=== PATIENT | female | born 1960 | race Caucasian/White ===

== ENCOUNTER 2020-09-16 11:42 | Emergency (ER) | payer OTHER, SELFPAY ==
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
--- NOTE | ~2020-09-16 | CT_ITS ---
EXAMINATION: CT cervical spine wo con DATE: 09/16/2020 13:12 INDICATION: Neck pain TECHNIQUE: Computed tomography (CT) of the cervical spine was performed without intravenous contrast. The dose-length product (DLP) was 458.98 mGy-cm. Automated exposure control and iterative reconstruc tion technique were employed. COMPARISON: None FINDINGS: There is no fracture, dislocation, or subluxation. The odontoid is intact. There is mild lo ss of intervertebral disc space height throughout the cervical spine. The prevertebral soft tissues a re normal. Small degenerative osteophytes project from the anterior endplates of multiple vertebral b odies. IMPRESSION: 1. Mild to moderate cervical spondylosis without acute findings. Reviewed, dictated and finalized at location B.
[2020-09-16 11:30] VITALS: BP 163/101; PULSE 76; RESP 18; TEMP 36.6; O2SAT 97
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
[2020-09-16 12:58] LABS: Estimated CRCL calculation 154 ml/min; Estimated Glomerular Filt Rate > 60
[2020-09-16 13:03] LABS: Estimated CRCL calculation 65 ml/min; Estimated Glomerular Filt Rate > 60
[2020-09-16 13:38] LABS: Basophils Percent Auto 0.4 % (0.2-1.2); Eosinophils Absolute Auto 0.1 K/mm3 (0-0.3); Eosinophils Percent Auto 1.2 % (0-4.4); Hematocrit 38.8 % (37.0-47.0); Hemoglobin 12.3 g/dL (12.0-15.0); Immature Granulocyte Absolute 0.02 K/mm3 (0.00-0.031); Immature Granulocyte Percent A 0.2 % (0-0.5); Lymphocytes Absolute Auto 1.59 K/mm3 (0.9-3.2); Lymphocytes Percent Auto 17.7 % (18.3-44.2); Mean Corpuscular HGB Conc 31.7 g/dl (32-36); Mean Corpuscular Hemoglobin 26.9 pg (26-34); Mean Corpuscular Volume 84.9 fl (80-100); Mean Platelet Volume 9.9 fl (7.4-10.4); Monocytes Absolute Auto 0.6 K/mm3 (0.1-0.6); Monocytes Percent Auto 6.4 % (2.6-8.5); Neutrophils Absolute Auto 6.7 K/mm3 (1.3-6.7); Neutrophils Percent Auto 74.1 % (45.5-73.1); Platelet Count Result 326 k/mm3 (150-375); Red Blood Count 4.57 M/mm3 (4.2-5.4)
[2020-09-16] MEDS: LACTATED RINGERS 1,000 ML 999 ML IV CONT (13:46)
[2020-09-16 13:48] LABS: Alanine Aminotransferase 21 U/L (4-35); Alkaline Phosphatase 71 U/L (38-126); Anion Gap 7 mmol/L (8-16); Aspartate Amino Transferase 28 U/L (14-36); Bilirubin,Total 0.4 mg/dL (0.2-1.3); Blood Urea Nitrogen 15 mg/dL (7-17); Calcium 8.7 mg/dL (8.4-10.2); Carbon Dioxide 29 mmol/L (22-30); Chloride 102 mmol/L (98-107); Estimated CRCL calculation 73 ml/min; Estimated Glomerular Filt Rate > 60; Glucose 88 mg/dL (65-105); Potassium 3.4 mmol/L (3.4-5.0); Sodium 138 mmol/L (137-145)
== END 2020-09-16 15:52 | disposition home or self-care (01) ==
PROVIDERS: Emergency Provider Emergency Medicine; PCP Family Medicine
DX: S20.211A Contusion of right front wall of thorax, initial encounter (principal); S80.11XA Contusion of right lower leg, initial encounter; V53.5XXA Driver of pick-up truck or van injured in collision with car, pick-up truck or van in traffic accident, initial encounter
CPT/HCPCS: 71260; 72125; 73590; 74177; 80053; 85025; 96360; 99284; J7120; Q9967

== ENCOUNTER 2022-09-07 15:19 | Outpatient (CLI) | payer OTHER, SELFPAY ==
--- NOTE | ~2022-09-07 | CT_ITS ---
Non-contrast CT scan of the Abdomen and Pelvis Clinical indication: Hematuria Technique: 2.5 mm axial scans were obtained through the abdomen and pelvis without intravenous or or al contrast. Dose reduction technique was used on this scan by utilizing automated exposure control a nd iterative reconstruction technique. The dose-length product (DLP) was 283.82 mGy-cm. COMPARISON: 09/16/2020 Findings: Images through the lung bases reveal no abnormalities. There is a 1.0 x 0.7 cm stone at the left renal pelvis, with Hounsfield units in the range of 900. No hydronephrosis. No right renal or right ureteral stones seen. No right hydronephrosis. The liver, spleen, pancreas, gallbladder, and adrenals appear normal. There is no aortic aneurysm. There is no evidence of bowel obstruction. Images through the pelvis were performed. There is no evidence of ascites or lymphadenopathy. Urinary bladder unremarkable. No adnexal mass seen. No ascites. Impression: 8 mm nonobstructing left renal stone, as detailed above. Reviewed, dictated and finalized at location M. Impression: 8 mm nonobstructing left renal stone, as detailed above.
== END 2022-09-07 15:20 | disposition home or self-care (01) ==
PROVIDERS: PCP Family Medicine; Visit Provider Physician Assistant
DX: R31.9 Hematuria, unspecified (principal); N20.0 Calculus of kidney
CPT/HCPCS: 74176

== ENCOUNTER 2022-10-10 13:14 | Outpatient (CLI) | payer OTHER, SELFPAY ==
[2022-10-10 14:29] LABS: Appearance Urine Clear (Clear); Bacteria Urine None Seen /hpf; Bilirubin Urine Negative (Negative); Blood Urine 2+ (Negative); Color Urine Yellow (Yellow); Glucose Urine UA Negative (Negative); Ketones Urine Negative (Negative); Leukocyte Esterase Ur Negative LEU/UL (Negative); Nitrate Urine Negative (Negative); Non Pathogenic Casts 0-2; Protein Urine Negative (Negative); Specific Grav Ur 1.012 (1.001-1.035); Squamous Epithelial Cell Urine None seen /hpf (Few); Urobilinogen Urine 0.2 mg/dL (<2.0); WBC Urine 0-5 /hpf
[2022-10-10 14:34] LABS: INR 0.9; Prothrombin Time 12.5 Seconds (11.1-14.7)
[2022-10-10 14:35] LABS: Partial Thromboplastin Time 25.2 SECONDS (22.3-36.8)
[2022-10-10 14:46] LABS: Add Urine Microscopic? YES
== END 2022-10-10 13:15 | disposition home or self-care (01) ==
LOC: ANHSURGERY 13:16
PROVIDERS: PCP Family Medicine; Visit Provider Urology
DX: N20.1 Calculus of ureter (principal); Z01.818 Encounter for other preprocedural examination
CPT/HCPCS: 36415; 81001; 85610; 85730

== ENCOUNTER 2022-10-12 01:09 | Day surgery (SDC) | payer OTHER, SELFPAY ==
[2022-10-09 14:03] VITALS: BMI 32.1
--- NOTE | 2022-10-09 14:18 | PC.NURSE ---
Report to the Outpatient Waiting Room, entrance under the green pavilion located off [facility], at time 7:30 on date 10/12/22. Planned Procedure Time: 9:30. Time changes happen often and if your time is changed the preop area will call you the afternoon before. - You and your visitor will be asked to self-screen and do not enter if you have any COVID symptoms. - A mask is optional within the hospital at this time. Patients may have clear liquids (water, carbonated beverages, clear teas, apple juice) until 3 hours prior to surgery (6:30) with a maximum of 20 ounces. - No food from midnight until time of surgery Take the following medications with a SIP of water the morning of surgery: BUPROPION, DULOXETINE DO NOT STOP ANY OF YOUR OTHER PRESCRIPTION MEDICATIONS PRIOR TO SURGERY ?EXCEPT THE FOLLOWING Medications to discontinue per physician: VITAMINS, NAPROXEN Date to take last dose: NO MORE UNTIL AFTER SURGERY Please no make-up, nail nigerien, hairspray, perfume, deodorant, or body powder the day of surgery. No jewelry (including any body piercings) or valuables the day of surgery, leave them at home. Please take a shower or bath the night before, or the morning of, surgery with an antibacterial soap. Wear comfortable, loose fitting clothing. - Jewelry must be removed prior to entering the operating room. Rings and piercings that are not removed may be cut off. - The hospital will not accept responsibility for valuables. - Please leave all valuables, including medications, at home the day of surgery. If you are going home after surgery, a licensed feeder driver must drive you home. - NO public transportation without another adult if you receive anesthesia. - We recommend that an adult stay with you for 24 hours following discharge. - We also recommend that you do not drive, make important decision, drink alcoholic beverages, or take any drugs that were not prescribed by your health care provider for at least 24 hours after your discharge time. Follow any additional instructions given to you from your surgeon. If you or anyone in your household have experienced Covid symptoms in the past week, please notify your surgeon or the nurse liaison at the phone number below for possible testing. Telephone instructions given to PT - TOSHIA ROJAS and asked if any additional questions and then verbalized understanding. Patient advised to call surgeon office or pre surgery nurse liaison [phone] if any additional questions.
--- NOTE | 2022-10-11 09:17 | WPDANESEPPF ---
Anes - Initial Pre Proc Eval Procedure: Operation Date: 10/12/22 09:30 Proposed Procedures p Left Renal Extracorporeal Shock Wave Lithotripsy - Alf Oseguera MD Date/Time: 10/11/22 09:17 Surgeon: Alf Oseguera MD Pre Op Diagnosis: left ureteral stone Patient Data Age: 62 Gender: F Height: 1.55 m Weight: 77.15 kg Allergies Allergy/AdvReac Type Severity Reaction Status Date / Time azithromycin Allergy Mild unknown Verified 10/09/22 14:06 cefuroxime Allergy Unknown Skin Verified 10/09/22 14:06 Reaction ciprofloxacin Allergy Unknown Skin Verified 10/09/22 14:06 Reaction doxycycline Allergy Unknown Nausea Verified 10/09/22 14:06 escitalopram Allergy Unknown swelling Verified 10/09/22 14:06 Penicillins Allergy Unknown Unknown Verified 10/09/22 14:06 venom-wasp Allergy Unknown local Verified 10/09/22 14:06 swelling/angioedema Home Medications Medication Instructions Recorded Confirmed Type duloxetine 60 mg capsule,delayed See Rx Instructions .Route 02/06/22 10/09/22 Rx release .COMPLEX #90 caps bupropion HCl 150 mg 24 hr tablet, See Rx Instructions .Route 02/16/22 10/09/22 Rx extended release .COMPLEX #90 tabs omeprazole 40 mg capsule,delayed 40 mg PO DAILY #90 caps 06/01/22 10/09/22 Rx release naproxen 500 mg tablet 500 mg PO BID #60 tabs 07/16/22 10/09/22 Rx cholecalciferol (vitamin D3) 50 50 mcg PO DAILY 08/31/22 10/09/22 History mcg (2,000 unit) capsule mecobalamin (vitamin B12) 1,000 1,000 mcg PO DAILY 08/31/22 10/09/22 History mcg chewable tablet eszopiclone 2 mg tablet 2 mg PO ONCE #1 tablet 09/19/22 10/09/22 Rx Patient hx anesthesia problems: none Family hx anesthesia problems: none Results Review: All pre-operative results and documents have been reviewed as part of the pre-operative evaluation. [facility] Past Medical History Medical History (Updated 10/11/22 @ 09:18 by Wali Cheng DO) Abnormal glandular Papanicolaou smear of cervix Abnormal mammogram of right breast 2018 normal Anxiety Cervical polyp Chronic pain syndrome Depression Hypothyroidism, unspecified Palpitations Poison alonso PONV (postoperative nausea and vomiting) Stenosis of larynx Unspecified ovarian cyst, left side Vitamin D deficiency, unspecified Family History Family History Other Cerebrovascular accident Social History Social History (Updated 09/19/22 @ 11:59 by Davy Villarreal APRN) Social History: Caffeine-soda x3 daily Smoking status: Never smoker Additional smoking assessment comments: Social smoker in for less than 1 year Alcohol intake: never Substance use: never Substance use type: does not use Lack of Transportation: No Lack of Food: Never True Current Housing: I Have Housing Concerned About Future Housing: No Difficulty Paying Gas/Electric Bills: No Difficulty Paying for Meds: No Currently Unemployed: No Education: High School Diploma/GED Difficulty w/ Childcare or Family Care: No Living arrangements: with family Spiritual care concerns: No Anes - Eval Final PreProcedure Day of Procedure 10/11/22 09:17 Patient weight: obese Heart: regular rate and rhythm Lungs: clear to auscultation Airway: Mallampati scale class II Neurological: alert and oriented Last oral intake: >/= 8 hours ASA classification: III Emergent: no Anesthetic plan: proceed Anesthesia type and monitoring: general LMA and standard monitoring Results Review: All pre-operative results and documents have been reviewed as part of the pre-operative evaluation. Informed Consent: The patient's anesthetic plan and its attendant risks and benefits were discussed with the patient/family/POA. Questions were solicited and answers provided to the satisfaction of the patient/family/POA.
[2022-10-12] VITALS (8 sets, daily range): BP systolic 147–162; BP diastolic 75–104; PULSE 53–75; RESP 12–16; TEMP 36.3–36.5; O2SAT 95–99
--- NOTE | ~2022-10-12 | XR_ITS ---
Supine and upright views of the abdomen Clinical history: Lithotripsy Findings: Bowel gas pattern is nonspecific. No evidence for obstruction or free air. Questionable 7 m m stone at the left renal pelvis or proximal left ureteral region. Osseous structures are intact. Impression: Questionable 7 mm stone in the left renal pelvis or proximal left ureteral region. Reviewed, dictated and finalized at [facility]. Impression: Questionable 7 mm stone in the left renal pelvis or proximal left ureteral nisa on.
--- NOTE | 2022-10-12 06:48 | WPDHPUPDATE1 ---
History and Physical Update Update Date/Time: 10/12/22 06:48 History and Physical has been reviewed, including an updated exam of the patient. There are NO changes in the patient's condition. Risks, benefits, and alternatives have been discussed and questions answered. Patient agrees to proceed with procedure.
[2022-10-12] MEDS: LACTATED RINGERS 1,000 ML 30 ML IV CONT (08:39)
[2022-10-12] MEDS: SCOPOLAMINE 1.5 MG PATCH TRANSDERM (08:55)
[2022-10-12] MEDS: GENTAMICIN 80MG/SOD CHL 50 ML 80 MG/50 ML BAG 100 MG IVPB (09:22)
[2022-10-12] MEDS: KETOROLAC 30 MG/ML VIAL (*BKC) IV PUSH (09:56)
--- NOTE | 2022-10-12 10:03 | P.OP_ITS ---
Procedure Note - Detailed Date of Procedure 10/12/22 Pre-op Diagnosis Left renal stone Post-op Diagnosis Same Procedure Performed Cystoscopy, left retrograde pyelography, left ESWL Surgeon Alf Oseguera MD Anesthesia General Description of Procedure The patient was brought to the operative suite where she was placed in the frog- legged position on the Dornier lithotripter table. Flexible cystoscopy was undertaken with a 16F flexible cystoscopy. Her urethra and bladder neck were endoscopically normal. The bladder mucosa was normal and there was a single, orthotopic ureteral orifice bilaterally. A 0.035 glidewire was advanced into the left renal pelvis under fluoroscopy. and angiographic catheters placed over the wire to perform a retrograde pyelogram and identify her 1 cm renal pelvic stone.. The focal point of the lithotriptor was placed at a 10mm left renal calculus. A total of 2500 shocks were delivered at a power setting of 4. There appeared to be good fragmentation of the stone. The patient tolerated the procedure well and was taken to the recovery room in good condition. Estimated Blood Loss 0 Urine Output 0 Drains No Packing No Pathology None sent Complications No immediate complications Condition Stable
--- NOTE | 2022-10-12 10:51 | SUR.PHASEI ---
1051: Simple mask removed.
[2022-10-12] MEDS: oxyCODONE HCL (*CRX) 5 MG TAB IR PO (11:24)
== END 2022-10-12 11:55 | disposition home or self-care (01) ==
PROVIDERS: PCP Family Medicine; Visit Provider Urology
PROC: (CPT 50590; principal; 2022-10-12 09:30)
DX: N20.0 Calculus of kidney (principal); F32.A Depression, unspecified; F41.9 Anxiety disorder, unspecified; E55.9 Vitamin D deficiency, unspecified; E66.9 Obesity, unspecified; Z68.33 Body mass index [BMI] 33.0-33.9, adult
CPT/HCPCS: 50590; 36415; 74018; 81001; 85610; 85730; A9270; C1758; J1100; J1580; J1885; J2250; J2405; J2704; J3010; J7120; Q9966

== ENCOUNTER 2022-10-22 13:23 | Outpatient (CLI) | payer OTHER, SELFPAY ==
--- NOTE | ~2022-10-22 | XR_ITS ---
EXAM: XR abdomen/kub 1V DATE: 10/22/2022 13:44 HISTORY: N20.0 - Calculus of kidney . COMPARISON: 10/04/2022; CT abdomen pelvis 09/07/2022. FINDINGS: Clear lung bases. Normal bowel gas pattern. No organomegaly. 11 mm calcification projectin g over the left renal shadow. Ovoid calcification projecting over the mid pelvis, calcified diverticu lum in the prior CT. Regional bones and soft tissues normal for age. IMPRESSION: Left nephrolithiasis. Reviewed, dictated and finalized at location K. IMPRESSION: Left nephrolithiasis.
== END 2022-10-22 13:24 | disposition home or self-care (01) ==
PROVIDERS: PCP Family Medicine; Visit Provider Urology
DX: N20.0 Calculus of kidney (principal)
CPT/HCPCS: 74018

== ENCOUNTER 2022-11-29 09:45 | Outpatient (CLI) | payer OTHER, SELFPAY ==
--- NOTE | 2022-12-07 18:29 | WPDHOMESLEEP ---
Sleep Study - Home Unattended Date of Study: 11/29/22 Ordering Provider: Davy Villarreal APRN Interpreting Provider: Quin Whitaker MD Home Sleep Study Type: David PAT Height: 1.6 m Weight: 80.739 kg Body Mass Index: 31.5 Neck Circumference (inches): 15 Sharon: 18 Reason for Sleep Study Hypersomnolence * 2001, PSG, EEG showed alpha wave intrusion no sleep apnea Sleep History Kary Mcwilliams is a 62-year-old woman with excessive daytime sleepiness. She was referred by her OBGYN for sleep evaluation. Her medical comorbidities include hypertension, depression, acid reflux and seasonal allergies. She has had fatigue and excessive sleepiness for the past 1-2 years in difficulties with sleep onset. She often awakens feeling un refreshed and tired in the morning. She does not have morning headaches. She is tired throughout the day, occasionally takes an afternoon nap lasting an hour. Taking naps is new for her. Naps are not refreshing. She was initially planning to have an in-lab study, however insurance authorized a home sleep test first. she always has loud snoring, always has heartburn at night and always has excessive daytime sleepiness. She rarely has memory or concentration problems. She occasionally has morning headaches. She frequently has trouble sleeping when she has a cold. She occasionally wakes up gasping for breath during the night. She frequently has breathing problems at night. She occasionally sweats excessively at night. She occasionally notices her heart pounding or beating irregularly during the night. She occasionally falls asleep during the day. She rarely falls asleep involuntarily, rarely falls asleep while driving. She never experiences loss of muscle tone with strong emotion. She rarely feels paralyzed on waking or falling asleep. She occasionally experiences vivid dreams upon waking or falling asleep. She never feel afraid of going to sleep. She occasional has nightmares. She frequently recalls her dreams. She occasionally has thoughts racing through her mind. She occasionally feels sad or depressed. She occasionally feels anxiety. She occasionally notices parts of her body jerk. She occasionally kicks during the night. She occasionally feels crawling or aching feelings in her legs. She occasionally feels leg pain at night. She rarely grinds his teeth, rarely has morning jaw pain. She occasionally feels bothered by pain during the day, rarely awakened by pain during the night. She occasionally wakes up feeling stiff in the morning, occasionally wakes feeling sore or achy in the morning. Occasionally, she awakens with pain in her neck, spine, or joints. She reports gaining weight in the last year. Normal bedtime is 11:00 p.m. and 12 midnight, taking 1/2 hour to fall asleep typically waking between 2 and 3 times at night to go to the bathroom. She wakes in the morning by 7:00 a.m.. She keeps a similar schedule on weekends, however she wakes later, 9:00 a.m. wake time. She wakes at night to go to the bathroom, Up to twice at night. It was more recent with a kidney stone.. She has sporadic restless leg symptoms in the evenings. She takes naps in the day. These are not refreshing. She is drowsy on waking. Habits:??Tobacco:nothing significant Caffeine: she drinks soda in the day. Alcohol: none Recreational substances: none [facility] Past Medical History Medical History (Updated 12/09/22 @ 15:07 by Quin Whitaker MD) Abnormal glandular Papanicolaou smear of cervix Abnormal mammogram of right breast 2018 normal Anxiety Cervical polyp Chronic pain syndrome Depression Hypertension Hypothyroidism, unspecified Palpitations Poison alonso PONV (postoperative nausea and vomiting) Stenosis of larynx Unspecified ovarian cyst, left side Vitamin D deficiency, unspecified Surgical History Surgical History (Updated 12/09/22 @ 15:08 by Quin Whitaker MD) History of tracheostomy as a child
[2022-12-09 14:39] VITALS: BMI 31.5
== END 2022-12-03 10:31 | disposition home or self-care (01) ==
LOC: ANHCSM 09:45
PROVIDERS: PCP Family Medicine; Visit Provider Nurse Practitioner Family
DX: G47.10 Hypersomnia, unspecified (principal)
CPT/HCPCS: 95800

== ENCOUNTER 2023-01-08 20:00 | Outpatient (CLI) | payer OTHER, SELFPAY ==
--- NOTE | 2023-01-28 12:04 | WPDSLEEPSTUD ---
Sleep Study Date of Study: 01/08/23 Ordering Provider: Davy Villarreal APRN Interpreting Physician: Dunia Thakkar DO Sleep Study Type: CPAP Titration Height: 1.6 m Weight: 80.739 kg Body Mass Index: 31.5 Neck Circumference (inches): 16 [place]: 11 Reason for Sleep Study The patient had a [employer] home sleep study on 11/29/2022 that showed an overall AHI of 13.1 with desaturation down to 83%. Due to laryngeal trauma, she needed to have a PAP Titration study. Sleep History Kary Mcwilliams is a 62-year-old woman with excessive daytime sleepiness.? She was referred by her OBGYN for sleep evaluation. ? Her medical comorbidities include hypertension, depression, acid reflux and seasonal allergies. She has had fatigue and excessive sleepiness for the past 1-2 years in difficulties with sleep onset.? She often awakens feeling un refreshed and tired in the morning.? She does not have morning headaches.? She is tired throughout the day, occasionally takes an afternoon nap lasting an hour.? Taking naps is new for her.? Naps are not refreshing.? She was initially planning to have an in-lab study, however insurance authorized a home sleep test first.? she always has loud snoring, always has heartburn at night and always has excessive daytime sleepiness.? She rarely has memory or concentration problems.? She occasionally has morning headaches.? She frequently has trouble sleeping when she has a cold.? She occasionally wakes up gasping for breath during the night. She frequently has breathing problems at night. She occasionally sweats excessively at night. She occasionally notices her heart pounding or beating irregularly during the night.? She occasionally falls asleep during the day.? She rarely falls asleep involuntarily,? rarely falls asleep while driving. She never experiences loss of muscle tone with strong emotion.? She rarely feels paralyzed on waking or falling asleep. She occasionally experiences vivid dreams upon waking or falling asleep. She? never feel afraid of going to sleep. She? occasional has nightmares. She frequently recalls her dreams. She occasionally has thoughts racing through her mind. She occasionally feels sad or depressed. She occasionally feels anxiety. She occasionally notices parts of her body jerk.? She occasionally kicks during the night. She occasionally feels crawling or aching feelings in her legs. She occasionally feels leg pain at night.? She rarely grinds his teeth,? rarely has morning jaw pain. She occasionally feels bothered by pain during the day,? rarely awakened by pain during the night. She occasionally wakes up feeling stiff in the morning,? occasionally wakes feeling sore or achy in the morning. ? Occasionally, she awakens with pain in her neck, spine, or joints.? ? She reports gaining weight in the last year. Normal bedtime is? 11:00 p.m. and 12 midnight,? taking 1/2 hour to fall asleep typically waking between 2 and 3 times at night to go to the bathroom.? She wakes in the morning by 7:00 a.m..? She keeps a similar schedule on weekends, however she wakes later, 9:00 a.m. wake time. ? She wakes at night to go to the bathroom, ? Up to twice at night.? It was more recent with a kidney stone..? She has sporadic restless leg symptoms in the evenings.? She takes naps in the day. These are not refreshing. She is drowsy on waking.? Habits:??Tobacco:nothing significant ? ? Caffeine: she drinks soda in the day. ? Alcohol: none ? ? Recreational substances: none [facility] Past Medical History Medical History Abnormal glandular Papanicolaou smear of cervix Abnormal mammogram of right breast 2018 normal Anxiety Cervical polyp Chronic pain syndrome Depression Hypertension Hypothyroidism, unspecified Palpitations Poison alonso PONV (postoperative nausea and vomiting) Stenosis of larynx Unspecified ovarian cyst, left side Vitamin D deficiency, unspecified Surgical History Surgi
[2023-01-28 12:14] VITALS: BMI 31.5
== END 2023-01-09 07:36 | disposition home or self-care (01) ==
LOC: ANHCSM 01-09 07:35
PROVIDERS: PCP Family Medicine; Visit Provider Nurse Practitioner Family
DX: G47.33 Obstructive sleep apnea (adult) (pediatric) (principal)
CPT/HCPCS: 95811

== ENCOUNTER 2023-04-15 16:05 | Emergency (ER) | payer OTHER, SELFPAY ==
--- NOTE | ~2023-04-15 | XR_ITS ---
EXAMINATION: XR chest 2V Exam Date/Time: 04/15/2023 17:25 REGISTERED RADIOGRAPHER HISTORY: shortness of breath Comparison: CT cap 09/16/2020. RESULT: Lines, tubes, and devices: None. Lungs and pleura: Low volumes with crowding in the lateral view. No focal consolidation, pleural eff usion, or pneumothorax. Granulomatous calcification. Cardiomediastinal silhouette: Stable. Other: No acute osseous or upper abdominal finding. IMPRESSION: No acute cardiopulmonary process. Reviewed, dictated and finalized at location K. STERED RADIOGRAPHER
[2023-04-15 16:10] VITALS: BP 158/102; PULSE 77; RESP 18; TEMP 36.8; O2SAT 100
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
--- NOTE | 2023-04-15 16:46 | ECG_ITS ---
Measurements Intervals [place] Rate: 75 P: 51 NE: 159 QRS: -22 QRSD: 106 T: 55 QT: 392 QTc: 438 Interpretive Statements SINUS RHYTHM BORDERLINE R WAVE PROGRESSION, ANTERIOR LEADS LEFT VENTRICULAR HYPERTROPHY AND ST-T CHANGE BORDERLINE ECG NO PREVIOUS ECG AVAILABLE FOR COMPARISON Electronically Signed On 04-16-2023 6:18:42 WRITER EDITOR by Pierre Wong D.O.
[2023-04-15 18:18] LABS: Basophils Percent Auto 0.7 % (0.2-1.2); Eosinophils Absolute Auto 0.2 K/mm3 (0-0.3); Eosinophils Percent Auto 2.9 % (0-4.4); Hematocrit 40.4 % (37.0-47.0); Hemoglobin 12.9 g/dL (12.0-15.0); Immature Granulocyte Absolute 0.02 K/mm3 (0.00-0.031); Immature Granulocyte Percent A 0.4 % (0-0.5); Lymphocytes Absolute Auto 1.03 K/mm3 (0.9-3.2); Mean Corpuscular HGB Conc 31.9 g/dl (32-36); Mean Corpuscular Hemoglobin 26.5 pg (26-34); Mean Platelet Volume 9.6 fl (7.4-10.4); Monocytes Absolute Auto 0.7 K/mm3 (0.1-0.6); Monocytes Percent Auto 13.6 % (2.6-8.5); Neutrophils Absolute Auto 3.4 K/mm3 (1.3-6.7); Neutrophils Percent Auto 63.4 % (45.5-73.1); Platelet Count Result 365 k/mm3 (150-375); Red Blood Count 4.87 M/mm3 (4.2-5.4); Red Cell Distribution Width 13.2 % (11.5-14.5); White Blood Count 5.4 K/mm3 (4.5-10.0)
[2023-04-15 18:38] LABS: Alanine Aminotransferase 21 U/L (6-35); Albumin Level 4.3 g/dL (3.5-5.1); Alkaline Phosphatase 79 U/L (38-126); Anion Gap 8 mmol/L (8-16); Aspartate Amino Transferase 27 U/L (14-36); Bilirubin,Total 0.4 mg/dL (0.2-1.3); Blood Urea Nitrogen 10 mg/dL (7-17); Calcium 9.3 mg/dL (8.4-10.2); Carbon Dioxide 33 mmol/L (22-30); Chloride 93 mmol/L (98-107); Estimated CRCL calculation 57 ml/min; Estimated Glomerular Filt Rate > 60; Glucose 92 mg/dL (65-110); Potassium 3.2 mmol/L (3.4-5.0); Sodium 134 mmol/L (137-145)
[2023-04-15 18:49] LABS: NT Pro B Type Natriuretic Pept 357 pg/mL (19.9-100); Troponin I < 0.012 ng/mL (0.000-0.034)
[2023-04-15 18:54] LABS: Influenza A QL RT-PCR Negative (Negative); Influenza B QL RT-PCR Negative (Negative); RSV RNA, RT-PCR Negative (Negative); SARS-CoV-2 RNA PCR Positive (Negative)
[2023-04-15 20:45] VITALS: BP 143/89; PULSE 75; RESP 18; O2SAT 99
[2023-04-15 23:52] VITALS: BP 156/92; PULSE 65; RESP 16; O2SAT 95
== END 2023-04-16 00:05 | disposition home or self-care (01) ==
PROVIDERS: Nurse Practitioner Family; Emergency Provider Emergency Medicine; PCP Family Medicine
DX: U07.1 COVID-19 (principal); E03.9 Hypothyroidism, unspecified; Z79.899 Other long term (current) drug therapy
CPT/HCPCS: 36415; 71046; 80053; 83880; 84484; 85025; 87637; 93005; 99284

== ENCOUNTER 2023-04-20 17:21 | Emergency (ER) | payer OTHER, SELFPAY | END 2023-04-20 17:30 | disposition left against medical advice (07) | PROVIDERS: Emergency Provider Nurse Practitioner Family; PCP Family Medicine | DX: Z53.21 Procedure and treatment not carried out due to patient leaving prior to being seen by health care provider (principal) | CPT/HCPCS: 99199 ==

== ENCOUNTER 2023-04-30 09:53 | Outpatient (CLI) | payer OTHER, SELFPAY ==
--- NOTE | ~2023-04-30 | XR_ITS ---
EXAMINATION: XR abdomen/kub 1V DATE: 04/30/2023 10:17 INDICATION: Calcium kidney stones. TECHNIQUE: A supine view of the abdomen on 2 radiographs was obtained. COMPARISON: CT abdomen and pelvis 09/07/2022 FINDINGS: There are no dilated loops of bowel. There is a moderate volume of stool in the colon. Ther e is a phlebolith in the pelvis. IMPRESSION: 1. No visible urolithiasis. Reviewed, dictated and finalized at location A. OPEDICALLY IMPAIRED TEACHER IMPRESSION: 1. No visible urolithiasis.
== END 2023-04-30 09:54 | disposition home or self-care (01) ==
LOC: ANHIMG 09:54
PROVIDERS: PCP Family Medicine; Visit Provider Urology
DX: N20.0 Calculus of kidney (principal)
CPT/HCPCS: 74018

== ENCOUNTER 2024-04-21 15:18 | Outpatient (CLI) | payer OTHER, SELFPAY ==
--- NOTE | ~2024-04-21 | MM_ITS ---
EXAMINATION: MM screening [facility] BI [facility] [place] HISTORY: Screening TECHNIQUE: Craniocaudal and mediolateral oblique 3-D tomosynthesis images were obtained and synthetic 2-D images were generated. CAD analysis was submitted and interpreted. COMPARISON: 03/31/2028 BREAST PARENCHYMAL COMPOSITION: Not dense: There are scattered areas of fibroglandular density. FINDINGS: Asymmetry in the upper inner quadrant of the left breast is not significantly changed from prior examination. There is no evidence of suspicious mass, calcification, or architectural distortio n to suggest malignancy in either breast. There has been no suspicious interval change. IMPRESSION: 1. No mammographic evidence of malignancy. 2. Recommend routine screening mammography in one year. BI-RADS Category 2: Benign finding(s). Reviewed, dictated and finalized at location B. ENGER SCREENER
== END 2024-04-21 15:19 | disposition home or self-care (01) ==
LOC: MICIMG 15:19
PROVIDERS: PCP Family Medicine; Visit Provider Nurse Practitioner Family
DX: Z12.31 Encounter for screening mammogram for malignant neoplasm of breast (principal)
CPT/HCPCS: 77063; 77067

== ENCOUNTER 2025-01-28 10:55 | Emergency (ER) | payer OTHER, SELFPAY ==
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
[2025-01-28 11:05] VITALS: BP 148/108; PULSE 78; RESP 16; TEMP 36.9; O2SAT 100
== END 2025-01-28 11:28 | disposition home or self-care (01) ==
PROVIDERS: Emergency Provider Nurse Practitioner; PCP Nurse Practitioner Family
DX: J01.90 Acute sinusitis, unspecified (principal); I10 Essential (primary) hypertension; E03.9 Hypothyroidism, unspecified; E55.9 Vitamin D deficiency, unspecified; F41.9 Anxiety disorder, unspecified; F32.A Depression, unspecified; Z86.16 Personal history of COVID-19
CPT/HCPCS: 99213; G0463